=== PATIENT | male | born 1985 | race Two or more races ===

== ENCOUNTER 2019-03-10 06:47 | Emergency (ER) | payer BC, OTHER ==
[2019-03-10 06:56] VITALS: BP 161/94
[2019-03-10] MEDS ORDERED: Benzocaine 20% Topical Spray UD MUCMEM ONE (07:34)
[2019-03-10] MEDS ORDERED: Ketorolac 60 MG/2 ML SDV IM ONE (07:34)
--- NOTE | 2019-03-10 07:34 | EDM.PDOC ---
ED HPI GENERAL MEDICAL PROBLEM - General Chief Complaint: ENT Problem Stated Complaint: TOOTH PAIN- LEFT SIDE OF JAW Time Seen by Provider: 03/10/19 07:31 - History of Present Illness INITIAL COMMENTS - FREE TEXT/NARRATIVE: HISTORY AND PHYSICAL: History of present illness: Patient's a 33-year-old white male presents with a concern of lower molar dental fracture that occurred yesterday was eating presents now with increased pain and swelling to his left jaw. Patient has fever chills nausea vomiting or other complaints Review of systems: As per history of present illness and below otherwise all systems reviewed and negative. Past medical history: As per history of present illness and as reviewed below otherwise noncontributory. Surgical history: As per history of present illness and as reviewed below otherwise noncontributory. Social history: No reported history of drug or alcohol abuse. Family history: As per history of present illness and as reviewed below otherwise noncontributory. Physical exam: HEENT: Atraumatic, normocephalic, pupils reactive, negative for conjunctival pallor or scleral icterus, mucous membranes moist, throat clear, neck supple, nontender, trachea midline. Generally poor dentition patient is dental fracture secondary to dental caries left mandibular swelling is noted Lungs: Clear to auscultation, breath sounds equal bilaterally, chest nontender. Heart: S1S2, regular, negative for clicks, rubs, or JVD. Abdomen: Soft, nondistended, nontender. Negative for masses or hepatosplenomegaly. Negative for costovertebral tenderness. Pelvis: Stable nontender. Genitourinary: Deferred. Rectal: Deferred. Extremities: Atraumatic, negative for cords or calf pain. Neurovascular unremarkable. Neuro: Awake, alert, oriented. Cranial nerves II through XII unremarkable. Cerebellum unremarkable. Motor and sensory unremarkable throughout. Exam nonfocal. Diagnostics: None Therapeutics: Dental balls, hydrocodone by mouth, Toradol 60 mg Impression: #1 dentalgia #2 dental caries with secondary dental fracture #3 rule out dental abscess Definitive disposition and diagnosis as appropriate pending reevaluation and review of above. tooth Pain Score (Numeric/FACES): 8 - Related Data Allergies Allergy/AdvReac Type Severity Reaction Status Date / Time No Known Allergies Allergy Verified 03/10/19 06:57 Home Meds: Home Meds Insulin Glarg,Human.Rec.Analog [LantUS Solostar] 30 units SUBCUT BEDTIME [History] Insulin Lispro [HumaLOG] 10 unit SUBCUT TID 07/05/15 [History] Past Medical History Endocrine/Metabolic History: Reports: Diabetes, Type I Other Dermatologic History: chronic hand peeling/splitting Social & Family History - Family History Family Medical History: Noncontributory - Tobacco Use Smoking Status *Q: Never Smoker - Recreational Drug Use Recreational Drug Use: No ED ROS GENERAL - Review of Systems Review Of Systems: ROS reveals no pertinent complaints other than HPI. ED EXAM, GENERAL - Physical Exam Exam: See Below (dictation) Course - Vital Signs Last Recorded V/S: Last Vital Signs Temp 36.1 C 03/10/19 06:47 Pulse 74 03/10/19 06:47 Resp 18 03/10/19 06:47 BP 161/94 H 03/10/19 06:47 Pulse Ox 95 03/10/19 06:47 Departure - Departure Time of Disposition: 07:33 Disposition: Home, Self-Care 01 Condition: Good Clinical Impression: Dental caries, Dental abscess, Fracture of tooth - Discharge Information Referrals: PCP,None [Primary Care Provider] - Additional Instructions: The following information is given to patients seen in the emergency department who are being discharged to home. This information is to outline your options for follow-up care. We provide all patients seen in our emergency department with a follow-up referral. The need for follow-up, as well as the timing and circumstances, are variable depending upon the specifics of your emergency department visit. If you don't have a primary care physician on staff, we will provide you with a referral. We always advise you to contact your personal physician following an emergency department visit to inform them of the circumstance of the visit and for follow-up with them and/or the need for any referrals to a consulting specialist. The emergency department will also refer you to a specialist when appropriate. This referral assures that you have the opportunity for followup care with a specialist. All of these measure are taken in an effort to provide you with optimal care, which includes your followup. Under all circumstances we always encourage you to contact your private physician who remains a resource for coordinating your care. When calling for followup care, please make the office aware that this follow-up is from your recent emergency room visit. If for any reason you are refused follow-up, please contact the [facility] emergency department at and asked to speak to the emergency department charge nurse. Follow-up dentist as discussed Augmentin Ultram as prescribed Motrin as directed and return as needed as discussed
[2019-03-10] MEDS ORDERED: Lidocaine 2% Viscous Solution 15 ML Cup PO ONE (07:36)
[2019-03-10] MEDS ORDERED: Acetaminophen/HYDROcodone 325-5 MG Tab PO ONE (07:38)
== END 2019-03-10 07:52 | disposition home or self-care (01) ==
LOC: MW.ED 06:47
DX: K04.7 Periapical abscess without sinus (principal); K02.9 Dental caries, unspecified; K03.81 Cracked tooth; E10.9 Type 1 diabetes mellitus without complications
CPT/HCPCS: 96372; 99282; A9270; J1885

== ENCOUNTER 2024-01-24 05:49 | Emergency (ER) | payer SELFPAY ==
[2024-01-24] MEDS: Sodium Chloride 0.9% 1,000 ML IV ONE (06:38)
[2024-01-24 06:39] LABS: BASOPHILS ABSOLUTE AUTO 0.05 K/uL (0.00-0.20); BASOPHILS PERCENT AUTO 0.6 % (0.0-1.0); EOSINOPHILS ABSOLUTE AUTO 0.12 K/uL (0.00-0.45); EOSINOPHILS PERCENT AUTO 1.5 % (0.0-6.0); HEMATOCRIT 40.9 % (42.0-52.0); HEMOGLOBIN 13.9 g/dL (14.0-18.0); IMMATURE GRAN ABSOLUTE AUTO 0.04 K/uL (0.00-0.05); IMMATURE GRAN PERCENT AUTO 0.5 % (0.0-0.4); LYMPHOCYTES ABSOLUTE AUTO 2.47 K/uL (1.00-4.80); LYMPHOCYTES PERCENT AUTO 31.1 % (24.0-44.0); MEAN CORPUSCULAR HEMOGLOBIN 28.8 pg (28.0-32.0); MEAN CORPUSCULAR VOLUME 84.9 fL (83.0-99.0); MEAN PLATELET VOLUME 11.5 fL (9.4-12.4); MONOCYTES ABSOLUTE AUTO 0.66 K/uL (0.00-0.80); MONOCYTES PERCENT AUTO 8.3 % (0.0-8.0); NEUTROPHILS ABSOLUTE AUTO 4.61 K/uL (1.80-7.70); PLATELET COUNT,PLT 239 K/uL (150-400); RED BLOOD CELL COUNT 4.82 M/uL (4.52-5.90); WHITE BLOOD CELL COUNT,WBC 7.95 K/uL (3.9-11.3)
[2024-01-24] MEDS: fentaNYL 50 MCG/ML SDV ONE (06:42)
[2024-01-24] MEDS: fentaNYL 100 MCG/2 ML SDV IVPUSH ONE ×3 (06:44→06:55)
[2024-01-24] MEDS: Propofol 200 MG/20 ML SDV IVPUSH ONE (06:44)
[2024-01-24 07:16] LABS: PTT,PARTIAL THROMBOPLSTIN TIME 29.6 SEC (23.9-30.7)
[2024-01-24 07:23] LABS: A/G RATIO 0.9 (0.9-1.6); ALBUMIN 3.4 g/dL (3.4-5.0); BILIRUBIN TOTAL 0.5 mg/dL (0.2-1.0); CREATININE 1.1 mg/dL (0.8-1.3); EST CRCL DRUG DOSING (CG) 101.9 mL/min; POTASSIUM,K 3.5 mmol/L (3.5-5.1); PROTEIN TOTAL,TP 7.2 g/dL (6.4-8.2)
[2024-01-24 07:27] VITALS: BP 138/91; PULSE 77
[2024-01-24] MEDS: Morphine 4 MG/ML Syringe IVPUSH ONE (08:48)
== END 2024-01-24 09:00 ==
LOC: MW.ED 05:49
DX: S82.851A Displaced trimalleolar fracture of right lower leg, initial encounter for closed fracture (principal); E10.9 Type 1 diabetes mellitus without complications; Z75.8 Other problems related to medical facilities and other health care; W19.XXXA Unspecified fall, initial encounter
CPT/HCPCS: 27818; 36415; 73600; 73610; 80053; 85025; 85610; 85730; 96374; 99152; 99285; J2270; J2704; J3010; J7030; 99283